=== PATIENT | female | born 1955 | race Caucasian/White ===

== ENCOUNTER 2021-08-06 16:21 | Observation (INO) ==
[2021-08-06] MEDS ORDERED: 0.9 % Sodium Chloride 1,000 ML IVC ONE (17:41)
[2021-08-06] MEDS ORDERED: Vancomycin 1,000 MG VIAL IVPB ONE (17:45)
[2021-08-06 18:10] LABS: Basophils # 0.1 K/mcL (0.0-0.2); Basophils % 0.7 %; Eosinophils # 0.8 K/mcL (0.0-0.6); Eosinophils % 8.5 %; Hematocrit 29.1 % (35.3-44.9); Hemoglobin 8.6 g/dL (11.5-15.4); Immature Granulocytes % 0.7 % (0-4); Lymphocytes # 1.1 K/mcL (0.6-4.6); Lymphocytes % 12.8 %; Mean Corpuscular HGB Conc 29.6 g/dL (31.6-35.5); Mean Corpuscular Hemoglobin 25.4 pg (28.0-33.3); Mean Corpuscular Volume 85.8 fL (83.0-100.0); Mean Platelet Volume 10.5 fL (9.4-12.4); Monocytes # 0.6 K/mcL (0.0-1.3); Monocytes % 6.5 %; Neutrophils # 6.3 K/mcL (1.6-8.9); Platelet Count 293 K/mcL (140-400); Red Blood Count 3.39 M/mcL (3.82-4.97); Segmented Neutrophils % 70.8 %; White Blood Count 8.9 K/mcL (4.3-11.1)
[2021-08-06 18:28] LABS: Alanine Aminotransferase 8 Units/L (7-52); Albumin 3.4 g/dL (3.5-5.7); Albumin/Globulin Ratio 0.8 (1.1-2.2); Alkaline Phosphatase 84 Units/L (34-104); Aspartate Amino Transferase 16 Units/L (13-39); BUN/Creatinine Ratio 20 (6-26); Bilirubin,Direct 0.1 mg/dL (0.0-0.2); Bilirubin,Indirect 0.2 mg/dL (0.0-1.0); Bilirubin,Total 0.3 mg/dL (0.3-1.0); Blood Urea Nitrogen 13 mg/dL (8-23); Calcium 8.8 mg/dL (8.6-10.3); Carbon Dioxide 28 mEq/L (23-29); Chloride 102 mEq/L (98-107); Globulin 4.4 g/dL (2.4-3.5); Glucose 116 mg/dL (70-105); Osmolality,Calculated 285 (280-300); Sodium 137 mEq/L (136-145); Total Protein 7.8 g/dL (6.4-8.9); eGFR For African Americans > 60 (> 60); eGFR For Non-African Americans > 60 (> 60)
[2021-08-06] MEDS ORDERED: Naloxone 0.4 MG/ML INJ IVP PRN (22:20)
[2021-08-06] MEDS ORDERED: Ondansetron 4 MG/2 ML VIAL IVP PRN (22:20)
[2021-08-06] MEDS ORDERED: Acetaminophen 325 MG TABLET PO PRN (22:20)
[2021-08-06] MEDS: Doxycycline 100 MG CAPSULE PO SCH (22:24)
[2021-08-06] MEDS: Baclofen 10 MG TABLET PO SCH (22:24)
[2021-08-06] MEDS: Gabapentin 400 MG CAPSULE PO SCH (22:24)
[2021-08-07] MEDS: 0.9 % Sodium Chloride 1,000 ML IVC SCH ×2 (00:09→12:12)
[2021-08-07] MEDS: *HR* HYDROcodone/Acet 5/325 mg TABLET PO PRN ×2 (03:26→17:00)
[2021-08-07 03:51] LABS: Basophils # 0.1 K/mcL (0.0-0.2); Basophils % 0.6 %; Eosinophils # 0.7 K/mcL (0.0-0.6); Eosinophils % 8.7 %; Hematocrit 28.8 % (35.3-44.9); Hemoglobin 8.6 g/dL (11.5-15.4); Immature Granulocytes % 0.5 % (0-4); Lymphocytes # 1.1 K/mcL (0.6-4.6); Lymphocytes % 12.9 %; Mean Corpuscular HGB Conc 29.9 g/dL (31.6-35.5); Mean Corpuscular Hemoglobin 25.4 pg (28.0-33.3); Mean Platelet Volume 10.5 fL (9.4-12.4); Monocytes # 0.5 K/mcL (0.0-1.3); Monocytes % 5.9 %; Neutrophils # 6.1 K/mcL (1.6-8.9); Platelet Count 275 K/mcL (140-400); Red Blood Count 3.39 M/mcL (3.82-4.97); Red Cell Distribution Width 17.7 % (11.5-14.5); Segmented Neutrophils % 71.4 %; White Blood Count 8.5 K/mcL (4.3-11.1)
[2021-08-07 04:18] LABS: INR 1.2; Prothrombin Time 13.3 Seconds (9.4-12.1)
[2021-08-07 04:20] LABS: Activated Partial Thrombo Time 30.8 Seconds (26.0-36.0)
[2021-08-07 04:28] LABS: Alanine Aminotransferase 8 Units/L (7-52); Albumin 3.3 g/dL (3.5-5.7); Albumin/Globulin Ratio 0.8 (1.1-2.2); Alkaline Phosphatase 83 Units/L (34-104); Aspartate Amino Transferase 11 Units/L (13-39); BUN/Creatinine Ratio 17 (6-26); Bilirubin,Total 0.3 mg/dL (0.3-1.0); Blood Urea Nitrogen 8 mg/dL (8-23); Calcium 8.7 mg/dL (8.6-10.3); Carbon Dioxide 26 mEq/L (23-29); Chloride 104 mEq/L (98-107); Globulin 4.2 g/dL (2.4-3.5); Glucose 105 mg/dL (70-105); Osmolality,Calculated 283 (280-300); Phosphorous 3.5 mg/dL (2.7-4.5); Potassium 3.8 mEq/L (3.5-5.1); Sodium 137 mEq/L (136-145); Total Protein 7.5 g/dL (6.4-8.9); eGFR For African Americans > 60 (> 60); eGFR For Non-African Americans > 60 (> 60)
[2021-08-07] MEDS: Doxycycline 100 MG CAPSULE PO SCH (08:10)
[2021-08-07] MEDS: Gabapentin 400 MG CAPSULE PO SCH ×4 (08:10→22:08)
[2021-08-07] MEDS: Baclofen 10 MG TABLET PO SCH ×3 (08:11→22:08)
[2021-08-07 14:29] LABS: % Iron Saturation 7 % (15-50); Iron 20 mcg/dL (50-170); Transferrin 208 mg/dL (203-362)
[2021-08-07 14:48] LABS: Ferritin 36 ng/mL (10-120)
[2021-08-07 14:48] LABS: Folate 9.6 ng/mL (3.0-16.0)
[2021-08-07] MEDS: Melatonin 3 MG TABLET PO PRN (22:08)
[2021-08-08] MEDS: *HR* HYDROcodone/Acet 5/325 mg TABLET PO PRN ×3 (01:33→21:12)
[2021-08-08] MEDS: *HR* Enoxaparin 40 MG/0.4 ML SYRINGE SQ SCH (06:13)
[2021-08-08] MEDS: Baclofen 10 MG TABLET PO SCH ×3 (10:28→21:12)
[2021-08-08] MEDS: Gabapentin 400 MG CAPSULE PO SCH ×4 (10:28→21:11)
[2021-08-08] MEDS: Melatonin 3 MG TABLET PO PRN (21:11)
[2021-08-09] MEDS: *HR* Enoxaparin 40 MG/0.4 ML SYRINGE SQ SCH (05:19)
[2021-08-09 05:35] LABS: eGFR For African Americans > 60 (> 60); eGFR For Non-African Americans > 60 (> 60)
[2021-08-09 07:51] VITALS: TEMP 98.2
[2021-08-09] MEDS: Baclofen 10 MG TABLET PO SCH (09:15)
[2021-08-09] MEDS: Gabapentin 400 MG CAPSULE PO SCH (09:15)
[2021-08-09] MEDS: *HR* HYDROcodone/Acet 5/325 mg TABLET PO PRN (09:18)
[2021-08-09 11:43] VITALS: BP 128/84; PULSE 98; RESP 15; O2SAT 93
== END 2021-08-09 16:30 | disposition home health service (06) ==
LOC: EMEROOGRE 16:21 → INPGRE 16:21
PROVIDERS: ADMIT Family Medicine; ATTEND Family Medicine